=== PATIENT | female | born 1975 | race Caucasian/White ===

== ENCOUNTER 2022-02-10 17:01 | Inpatient (IN) | payer SELFPAY ==
--- NOTE | 2022-02-10 17:22 | XRR_ITS ---
PROCEDURE INFORMATION: Exam: XR Chest Exam date and time: 02/10/2022 6:43 PM Age: 46 years old Clinical indication: Pain; Chest pressure; Additional info: Chest pain TECHNIQUE: Imaging protocol: Radiologic exam of the chest. Views: 1 view. COMPARISON: No relevant prior studies available. FINDINGS: Lungs: Lungs are clear bilaterally. Pleural spaces: No pleural effusion. No pneumothorax. Heart/Mediastinum: The cardiac silhouette is mildly enlarged. Mediastinal contours are unremarkable. Vasculature: Vascular calcifications in the aorta. Bones/joints: Unremarkable for age. XR/XR chest 1V portable [id number] IMPRESSION: 1. No acute cardiopulmonary process. 2. Incidental/nonacute findings are listed in the report.
[2022-02-10 17:23] VITALS: BP 124/81; PULSE 89; RESP 22; O2SAT 99
--- NOTE | 2022-02-10 17:36 | ED_ITS ---
Documented by User: Raúl Caraballo DO 02/17/22 12:52 HPI - Chest Pain General: Chief Complaint: ER Hold Stated Complaint: CHEST PAIN Time Seen by Provider: 02/10/22 17:04 Source: patient Mode of arrival: EMS History of Present Illness: 46-year-old female presents emergency room complaining of arm pain. She had for last several weeks couple times a week, states the pain begins in her forearms radiates up to her shoulders and then into her chest. She notes that she can make the pain better by rubbing or squeezing her arm in the spot that she squeezes seems to get better is also accompanied by neck pain. Will usually resolve spontaneously its been happening every couple of days for a while now its not associated with any diaphoresis or shortness of breath. Patient is a smoker. She has not noticed any increased cough she has a chronic baseline cough that for the most part is unchanged. No vomiting no diarrhea. she came in today because the symptoms were getting worse rather MD complaint: chest discomfort (And arm discomfort) Onset (ago): week(s) Timing of current episode: episodic Prior episodes: Yes Onset: during rest Pain location: substernal Pain radiation: right arm and left arm Severity: mild Quality: tightness, aching and heaviness Relieving factors: other (Massage) Exacerbating factors: nothing Associated symptoms: Deny abdominal pain, diaphoresis, dyspnea, fever(s), leg edema, nausea, palpitations, sense of impending doom, syncope or vomiting Treatment prior to arrival: none Review of Systems Const: Denies: fever(s) or diaphoresis ENMT: Denies: throat pain, ear or mastoid pain, nasal discharge or nasal congestion Card: Reports: chest pain; Denies: palpitations or syncope Resp: Denies: dyspnea GI: Denies: abdominal pain, nausea or vomiting : Denies: flank pain, difficulty voiding, dysuria, urinary frequency or urinary urgency Skin/Breast: Denies: rash or pruritus [facility] ED PFSH: Medical History (Updated 02/13/22 @ 00:00 by ) Non-ST elevation [place] (NSTEMI) Physical Exam Const: GENERAL APPEARANCE: cooperative and comfortable ORIENTATION/CONSCIOUSNESS: Yes awake, Yes oriented to person, Yes oriented to p lace and Yes oriented to time HENMT: COMMON NORMALS: normocephalic, atraumatic and hearing grossly normal bilaterally HEAD & SCALP: normocephalic and atraumatic Resp: COMMON NORMALS: normal respiratory effort, No retractions, No use of accessory muscles and clear to auscultation bilaterally AUSCULTATION: clear to auscultation bilaterally Cardio: COMMON NORMALS: regular rate, regular rhythm and No murmurs present (Cardio) RATE: regular rate RHYTHM: regular rhythm GI: COMMON NORMALS: Soft to palpation and No hepatosplenomegaly present AUSCULTATION: Yes normoactive bowel sounds PALPATION: Yes Soft to palpation, No Tenderness to palpation present (GI), No Guarding due to palpation present (GI) and Yes No hepatosplenomegaly present Extremity: COMMON NORMALS: normal to inspection, capillary refill normal, no clubbing, cyanosis or edema, no calf tenderness and no pedal edema Neuro: SENSORIUM/ORIENTATION: Yes oriented to person, Yes oriented to place and Yes oriented to time Skin: COMMON NORMALS: no rashes or lesions noted GENERAL SKIN EXAM: no rashes or lesions noted Course Vital Signs: Vital signs: Vital Signs Temperature 99.5 F 02/11/22 20:00 Pulse Rate 60 02/12/22 05:07 Respiratory Rate 18 02/12/22 04:00 Blood Pressure 110/60 02/12/22 11:30 Pulse Oximetry 99 02/12/22 04:00 Oxygen Delivery Me thod 02/11/22 17:17 MDM - Chest Pain Medical Decision Making EKG does not show any acute ST elevation. Waiting on second troponin. Care signed out to Dr. Chapman at change of shift. See final notes for diagnosis and disposition. Patient presents for chest pain second troponin is elevated consistent with a non-ST elevation NH. Spoke to the hospitalist will admit at this time. Lab Data 02/10/22 17:39 02/10/22 17:39 Radiology Impressions Chest X-Ray 02/10/22 17:22 IMPRESSION: 1. No acute cardiopulmonary process. 2. Incidental/nonacute findings are listed in the report. Laboratory Results WBC 10.8 10^3/uL (4.0-10.0) H 02/11/22 00:12 RBC 3.84 10^6/uL (4.1-5.3) L 02/11/22 00:12 Hgb 10.1 g/dL (11.5-15.3) L 02/11/22 00:12 Hct 32.6 % (37.0-47.0) L 02/11/22 00:12 MCV 84.9 fl (81-99) 02/11/22 00:12 MCH 26.3 pg (28.0-34.0) L 02/11/22 00:12 MCHC 31.0 g/dL (30.0-36.0) 02/11/22 00:12 RDW 15.9 % (12.1-15.1) H 02/11/22 00:12 Plt Count 359 10^3/cmm (130-400) 02/11/22 00:12 MPV 8.9 fL (7.4-10.4) 02/11/22 00:12 Neut % (Auto) 47.9 % 02/11/22 00:12 Lymph % (Auto) 42.5 % 02/11/22 00:12 [place] % (Auto) 8.1 % 02/11/22 00:12 Eos % (Auto) 0.8 % 02/11/22 00:12 Baso % (Auto) 0.5 % 02/11/22 00:12 Neut # (Auto) 5.19 10^3/uL (1.8-7.7) 02/11/22 00:12 Lymph # (Auto) 4.6 10^3/uL (0.8-4.8) 02/11/22 00:12 [place] # (Auto) 0.9 10^3/uL (0.2-0.9) 02/11/22 00:12 Eos # (Auto) 0.1 10^3/uL (0.0-0.8) 02/11/22 00:12 Baso # (Auto) 0.1 10^3/uL (0.0-0.1) 02/11/22 00:12 Nucleated RBC % (auto) 0 % 02/11/22 00:12 Nucleated RBCs # 0.0 /100WBC 02/11/22 00:12 Sodium 134 mmol/L (136-145) L 02/11/22 00:12 Potassium 3.4 mmol/L (3.5-5.1) L 02/11/22 00:12 Chloride 101 mmol/L (98-107) 02/11/22 00:12 Carbon Dioxide 23 mmol/L (22-29) 02/11/22 00:12 Anion Gap 13.4 (5-19) 02/11/22 00:12 BUN 7 mg/dL (6-20) 02/11/22 00:12 Creatinine 0.7 mg/dL (0.5-0.9) 02/11/22 00:12 GFR Calculation 90.9 mL/min (90-130) 02/11/22 00:12 Glucose 100 mg/dL (65-115) 02/11/22 00:12 Estimat Average Glucose 108 02/10/22 17:39 Estimat Average Glucose Cancelled 02/10/22 17:39 Hemoglobin A1c 5.4 % (4.0-6.0) 02/10/22 17:39 Hemoglobin A1c Cancelled 02/10/22 17:39 Calculated Osmolality 276 mOsm/kg (285-295) L 02/11/22 00:12 Calcium 8.8 mg/dL (8.5-10.5) 02/11/22 00:12 Magnesium 2.0 mg/dL (1.7-2.3) 02/11/22 00:12 Total Bilirubin 0.2 mg/dL (0.15-1.2) 02/11/22 00:12 AST 18 U/L (0-32) 02/11/22 00:12 ALT 10 U/L (0-33) 02/11/22 00:12 Alkaline Phosphatase 59 U/L (35-105) 02/11/22 00:12 Troponin T Gen 5 ng/L 390 ng/L (0-10) H* 02/11/22 09:34 Troponin T Baseline 18 ng/L (0-10) H 02/10/22 17:39 Troponin T 120 Minute 43.49 ng/L (0-10) H 02/10/22 19:11 Delta Troponin T 25.49 ABS# (0-10) H* 02/10/22 19:11 Troponin T Hi Sens 6Hr 161.8 ng/L (0-10) H 02/11/22 00:12 Troponin T Hi Sens 6Hr Delta 143.8 ng/L (0-12) H* 02/11/22 00:12 NT-Pro-B Natriuret Pep 97 pg/mL (0-125) 02/10/22 19:11 Total Protein 6.4 g/dL (6.6-8.7) L 02/11/22 00:12 Albumin 3.6 g/dL (3.5-5.2) 02/11/22 00:12 Globulin 2.8 g/dL (1.3-4.6) 02/11/22 00:12 Triglycerides 118 mg/dL (0-150) 02/10/22 19:11 Cholesterol 201 mg/dL (0-200) H 02/10/22 19:11 LDL Cholesterol, Calc 128 mg/dL (50-129) 02/10/22 19:11 HDL Cholesterol 49 mg/dL (60-100) L 02/10/22 19:11 LDL/HDL Ratio 2.61 RATIO (0.00-3.22) 02/10/22 19:11 Cholesterol/HDL Ratio 4.10 mg/dL (0.0-4.40) 02/10/22 19:11 TSH 1.06 uIU/mL (0.27-4.20) 02/10/22 19:11 Urine Opiates Screen Negative ng/mL (Negative) 02/11/22 08:25 Ur Barbiturates Screen Negative ng/mL (Negative) 02/11/22 08:25 Ur Phencyclidine Scrn Negative ng/mL (Negative) 02/11/22 08:25 Ur Amphetamines Screen Positive ng/mL (Negative) H 02/11/22 08:25 U Benzodiazepines Scrn Negative ng/mL (Negative) 02/11/22 08:25 Urine Cocaine Screen Negative ng/mL (Negative) 02/11/22 08:25 U Marijuana (THC) Screen Negative ng/mL (Negative) 02/11/22 08:25 Discharge Plan Discharge Patient Disposition: Admitted As Inpatient Admit Provider: Jenelle Mir Clinical Impression: Non-ST elevation NH (NSTEMI) Condition: Stable Discharge Diet: Cardiac Discharge Activity: Increase activity as tolerated Coding Level of Care Code ED Heat Treatment Technician for Jessyg Fwd Exam Detailed Documented by User: Suri Chapman MD 02/10/22 20:45 HPI - Chest Pain General: Chief Complaint: ER Hold Stated Complaint: CHEST PAIN Time Seen by Provider: 02/10/22 17:04 [facility] ED PFSH: Medical History (Updated 02/13/22 @ 00:00 by ) Non-ST elevation NH (NSTEMI) Course Vital Signs: Vital signs: Vital Signs Temperature 99.5 F 02/11/22 20:00 Pulse Rate 60 02/12/22 05:07 Respiratory Rate 18 02/12/22 04:00 Blood Pressure 110/60 02/12/22 11:30 Pulse Oximetry 99 02/12/22 04:00 Oxygen Delivery Me thod 02/11/22 17:17 MDM - Chest Pain Medical Decision Making Patient presents for chest pain second troponin is elevated consistent with a non-ST elevation NH. Spoke to the hospitalist will admit at this time. Lab Data 02/10/22 17:39 02/10/22 17:39 Radiology Impressions Chest X-Ray 02/10/22 17:22 IMPRESSION: 1. No acute cardiopulmonary process. 2. Incidental/nonacute findings are listed in the report. Laboratory Results WBC 10.8 10^3/uL (4.0-10.0) H 02/11/22 00:12 RBC 3.84 10^6/uL (4.1-5.3) L 02/11/22 00:12 Hgb 10.1 g/dL (11.5-15.3) L 02/11/22 00:12 Hct 32.6 % (37.0-47.0) L 02/11/22 00:12 MCV 84.9 fl (81-99) 02/11/22 00:12 MCH 26.3 pg (28.0-34.0) L 02/11/22 00:12 MCHC 31.0 g/dL (30.0-36.0) 02/11/22 00:12 RDW 15.9 % (12.1-15.1) H 02/11/22 00:12 Plt Count 359 10^3/cmm (130-400) 02/11/22 00:12 MPV 8.9 fL (7.4-10.4) 02/11/22 00:12 Neut % (Auto) 47.9 % 02/11/22 00:12 Lymph % (Auto) 42.5 % 02/11/22 00:12 [place] % (Auto) 8.1 % 02/11/22 00:12 Eos % (Auto) 0.8 % 02/11/22 00:12 Baso % (Auto) 0.5 % 02/11/22 00:12 Neut # (Auto) 5.19 10^3/uL (1.8-7.7) 02/11/22 00:12 Lymph # (Auto) 4.6 10^3/uL (0.8-4.8) 02/11/22 00:12 [place] # (Auto) 0.9 10^3/uL (0.2-0.9) 02/11/22 00:12 Eos # (Auto) 0.1 10^3/uL (0.0-0.8) 02/11/22 00:12 Baso # (Auto) 0.1 10^3/uL (0.0-0.1) 02/11/22 00:12 Nucleated RBC % (auto) 0 % 02/11/22 00:12 Nucleated RBCs # 0.0 /100WBC 02/11/22 00:12 Sodium 134 mmol/L (136-145) L 02/11/22 00:12 Potassium 3.4 mmol/L (3.5-5.1) L 02/11/22 00:12 Chloride 101 mmol/L (98-107) 02/11/22 00:12 Carbon Dioxide 23 mmol/L (22-29) 02/11/22 00:12 Anion Gap 13.4 (5-19) 02/11/22 00:12 BUN 7 mg/dL (6-20) 02/11/22 00:12 Creatinine 0.7 mg/dL (0.5-0.9) 02/11/22 00:12 GFR Calculation 90.9 mL/min (90-130) 02/11/22 00:12 Glucose 100 mg/dL (65-115) 02/11/22 00:12 Estimat Average Glucose 108 02/10/22 17:39 Estimat Average Glucose Cancelled 02/10/22 17:39 Hemoglobin A1c 5.4 % (4.0-6.0) 02/10/22 17:39 Hemoglobin A1c Cancelled 02/10/22 17:39 Calculated Osmolality 276 mOsm/kg (285-295) L 02/11/22 00:12 Calcium 8.8 mg/dL (8.5-10.5) 02/11/22 00:12 Magnesium 2.0 mg/dL (1.7-2.3) 02/11/22 00:12 Total Bilirubin 0.2 mg/dL (0.15-1.2) 02/11/22 00:12 AST 18 U/L (0-32) 02/11/22 00:12 ALT 10 U/L (0-33) 02/11/22 00:12 Alkaline Phosphatase 59 U/L (35-105) 02/11/22 00:12 Troponin T Gen 5 ng/L 390 ng/L (0-10) H* 02/11/22 09:34 Troponin T Baseline 18 ng/L (0-10) H 02/10/22 17:39 Troponin T 120 Minute 43.49 ng/L (0-10) H 02/10/22 19:11 Delta Troponin T 25.49 ABS# (0-10) H* 02/10/22 19:11 Troponin T Hi Sens 6Hr 161.8 ng/L (0-10) H 02/11/22 00:12 Troponin T Hi Sens 6Hr Delta 143.8 ng/L (0-12) H* 02/11/22 00:12 NT-Pro-B Natriuret Pep 97 pg/mL (0-125) 02/10/22 19:11 Total Protein 6.4 g/dL (6.6-8.7) L 02/11/22 00:12 Albumin 3.6 g/dL (3.5-5.2) 02/11/22 00:12 Globulin 2.8 g/dL (1.3-4.6) 02/11/22 00:12 Triglycerides 118 mg/dL (0-150) 02/10/22 19:11 Cholesterol 201 mg/dL (0-200) H 02/10/22 19:11 LDL Cholesterol, Calc 128 mg/dL (50-129) 02/10/22 19:11 HDL Cholesterol 49 mg/dL (60-100) L 02/10/22 19:11 LDL/HDL Ratio 2.61 RATIO (0.00-3.22) 02/10/22 19:11 Cholesterol/HDL Ratio 4.10 mg/dL (0.0-4.40) 02/10/22 19:11 TSH 1.06 uIU/mL (0.27-4.20) 02/10/22 19:11 Urine Opiates Screen Negative ng/mL (Negative) 02/11/22 08:25 Ur Barbiturates Screen Negative ng/mL (Negative) 02/11/22 08:25 Ur Phencyclidine Scrn Negative ng/mL (Negative) 02/11/22 08:25 Ur Amphetamines Screen Positive ng/mL (Negative) H 02/11/22 08:25 U Benzodiazepines Scrn Negative ng/mL (Negative) 02/11/22 08:25 Urine Cocaine Screen Negative ng/mL (Negative) 02/11/22 08:25 U Marijuana (THC) Screen Negative ng/mL (Negative) 02/11/22 08:25 Discharge Plan Discharge Patient Disposition: Admitted As Inpatient Admit Provider: Jenelle Mir Clinical Impression: Non-ST elevation NH (NSTEMI) Condition: Stable Discharge Diet: Cardiac Discharge Activity: Increase activity as tolerated Coding Level of Care Code ED Heat Treatment Technician for Chg Fwd Exam Detailed
--- NOTE | 2022-02-10 17:51 | ECG_ITS ---
[facility] Test Date: 2022-02-10 Pat Name: Chula Palomino Department: Room: Gender: Female Paper Slitter: : 1975 Requested By: Raúl Ayala Order Number: [id number] Frankie MD: Jina Cain M.D. Measurements Intervals [place] Rate: 80 P: 64 TN: 156 QRS: 74 QRSD: 86 T: 67 QT: 375 QTc: 433 Interpretive Statements SINUS RHYTHM POSSIBLE LEFT ATRIAL ENLARGEMENT [-0.1mV P-WAVE IN V1/V2] No previous ECG available for comparison Electronically Signed On 02-11-2022 14:20:09 BIOLOGY INSTRUCTOR by Jina Cain M.D. [id number]
[2022-02-10 17:52] LABS: Basophils % 0.4 %; Eosinophils % 0.3 %; Hematocrit 34.8 % (37.0-47.0); Hemoglobin 11.2 g/dL (11.5-15.3); Lymphocytes # 3.4 10^3/uL (0.8-4.8); Lymphocytes % 32.2 %; Mean Corpuscular HGB Conc 32.2 g/dL (30.0-36.0); Mean Corpuscular Hemoglobin 26.6 pg (28.0-34.0); Mean Corpuscular Volume 82.7 fl (81-99); Mean Platelet Volume 8.8 fL (7.4-10.4); Monocytes # 0.5 10^3/uL (0.2-0.9); Monocytes % 4.9 %; Neutrophils # 6.49 10^3/uL (1.8-7.7); Neutrophils % 61.9 %; Nucleated Red Blood Cells % 0 %; Platelet Count 403 10^3/cmm (130-400); Red Blood Count 4.21 10^6/uL (4.1-5.3); Red Cell Distribution Width 15.8 % (12.1-15.1); White Blood Count 10.5 10^3/uL (4.0-10.0)
[2022-02-10 18:15] LABS: Troponin(5th) Baseline 18 ng/L (0-10)
[2022-02-10 18:16] LABS: Anion Gap 13.7 (5-19); Blood Urea Nitrogen 5 mg/dL (6-20); Calcium 8.8 mg/dL (8.5-10.5); Carbon Dioxide 24 mmol/L (22-29); Chloride 96 mmol/L (98-107); Glomerular Filtration Rate 108.6 mL/min (90-130); Glucose 106 mg/dL (65-115); Osmolality Calculated 268 mOsm/kg (285-295); Potassium 3.7 mmol/L (3.5-5.1); Sodium 130 mmol/L (136-145)
[2022-02-10 18:41] VITALS: BP 118/80; PULSE 69; RESP 16; O2SAT 98
--- NOTE | 2022-02-10 19:23 | ECG_ITS ---
[facility] Test Date: 2022-02-10 Pat Name: Chula Palomino Department: Room: Gender: Female Yard Coupler: : 1975 Requested By: Raúl Ayala Order Number: [id number] Frankie MD: Jina Cain M.D. Measurements Intervals [place] Rate: 65 P: 67 [place]: 163 QRS: 79 QRSD: 93 T: 76 QT: 392 QTc: 410 Interpretive Statements SINUS RHYTHM Compared to ECG 02/10/2022 17:51:10 No significant changes Electronically Signed On 02-12-2022 0:09:23 ELECTRONIC PAGINATION SYSTEM OPERATOR by Jina Cain M.D. [email or web address] [email or web address]/store/[id number]
[2022-02-10 19:34] VITALS: BP 104/67; PULSE 74; RESP 19; O2SAT 97
[2022-02-10 19:59] LABS: Troponin 5 2HR 43.49 ng/L (0-10)
[2022-02-10 20:04] LABS: Troponin 5 2HR Delta 25.49 ABS# (0-10)
[2022-02-10] MEDS: enoxaparin 80 mg/0.8 mL Syringe 75 MG SUBCUT (20:30)
[2022-02-10 21:34] VITALS: BP 121/67; PULSE 87; RESP 19; O2SAT 97
--- NOTE | 2022-02-10 21:58 | PM.HP ---
Providers/Chief Complaint Primary Care Provider: Radhika Gross APN Chief Complaint: CHEST PAIN History of Present Illness Chula Palomino is a 46 year old female with no significant past medical history and not on any home medications presents to the hospital today for chest pain. She states she has been having pain in her chest and it radiates up to the arm into the jaw for the last few weeks typically lasting less than an hour and going away on its own however today it did not resolve on its own. She also got nauseous and diaphoretic with today's episode. He describes it as a chest heaviness, pressure or squeezing pain that starts in the middle of the chest and radiates up her arms and into the jaw. There are no exacerbating or alleviating factors. She says that she has been on phentermine on and off for the whole year but has not taken it for the last 2 weeks since she could not get an appointment with her doctor to refill it. She is a smoker 1 pack/day since she was a teenager. Denies any alcohol use. Denies other illicit drug use. She does have a baseline cough due to her smoking but has not noticed any worsening or increase sputum production or change in color sputum. Denies nausea, vomiting, diarrhea. Denies any family history of heart disease. Denies a history of any heart disease diagnosed in herself. ED course: 104/67, respiratory 19, pulse 74, saturation 97% on room air. WBC 10.5, sodium 130, chloride 96, hemoglobin 11.2. Chest x-ray did not show any acute cardiopulmonary process. Initial troponin 18, 2 hours 42.49. [place] 25.49. 6-hour troponin pending at this time. Medicine contacted to admit patient for NSTEMI. EKG did not show any acute ischemic changes. Medications/Allergies Allergies Allergy/AdvReac Type Severity Reaction Status Date / Time amoxicillin [From Augmentin] Allergy ALGY-Rash Verified 02/10/22 23:16 clavulanic acid Allergy ALGY-Rash Verified 02/10/22 23:16 [From Augmentin] Vitals/I&O/Wt Last Vital Signs Pulse 87 02/10/22 21:34 Resp 19 H 02/10/22 21:34 BP 121/67 02/10/22 21:34 Pulse Ox 97 02/10/22 21:34 O2 Del Method 02/10/22 21:34 Weight last 48 hrs Weight 75.75 kg Physical Exam Narrative: General: No acute distress HEENT: Normocephalic, atraumatic, breathing normally on room air Cardio: normal s1, s2, RRR Respiratory: clear to ausculation b/l, no wheezes, ronchi or crackles GI: Abdomen soft, nontender, nondistended, bowel sounds + Behavior: Appropriate and cooperative Extremities: No lower extremity edema Data 02/10/22 17:39 02/10/22 17:39 A&P Assessment and plan (1) Non-ST elevation ID (NSTEMI): Plan #Chest pain #NSTEMI #Underlying COPD, has a chronic cough. (has not had PFT's). - Aspirin, plavix 300 x1, then 75 daily, lopressor 12.5 bid, atorvastatin 80 daily, therapeutic lovenox protonix 40 daily - zofran for nausea - Currently pt chest pain free - Check urine drug screen - Family updated at bedside - Check lipid profile, check hemoglobin a1c, check TSH - Consult cardiology. - If chest pain occurs, will place on nitro paste. - Serial EKG's - Monitor vitals - Monitor on telemetry. Full Code DVT PPX: on therapeutic lovenox Attestations Medical Necessity Statement*: > 2 midnight stay for mgmt of NSTEMI Coding Level of Care Code Acute Drivers' Cash Clerk for colleen Brown Diagnoses Non-ST elevation ID (NSTEMI) I21.4
[2022-02-10] MEDS: clopidogrel 300 mg Tablet PO (22:06)
[2022-02-10] MEDS: ondansetron 2 mg/ML SDV 2 mL 4 MG IVP (22:14)
[2022-02-10 22:41] LABS: NT Pro B Type Natriuretic Pept 97 pg/mL (0-125)
[2022-02-10 22:48] LABS: Cholesterol 201 mg/dL (0-200); HDL Cholesterol 49 mg/dL (60-100); LDL Cholesterol Calculated 128 mg/dL (50-129); LDL HDL Ratio 2.61 RATIO (0.00-3.22); Thyroid Stimulating Hormone 1.06 uIU/mL (0.27-4.20); Triglycerides 118 mg/dL (0-150)
[2022-02-10 22:55] LABS: Estmated Average Glucose 108; Hemoglobin A1C 5.4 % (4.0-6.0)
[2022-02-10 23:16] VITALS: BP 136/72; PULSE 91; RESP 20; O2SAT 97
--- NOTE | 2022-02-10 23:23 | ECG_ITS ---
[facility] Test Date: 2022-02-11 Pat Name: Chula Palomino Department: Room: Gender: Female Salesperson Automobiles: : 1975 Requested By: Raúl Ayala Order Number: [id number] Frankie MD: Jina Cain M.D. Measurements Intervals [place] Rate: 77 P: 67 [place]: 161 QRS: 79 QRSD: 88 T: 61 QT: 376 QTc: 426 Interpretive Statements SINUS RHYTHM Compared to ECG 02/10/2022 19:08:45 No significant changes Electronically Signed On 02-12-2022 0:10:29 PLASTER AND STUCCO WORKER by Jina Cain M.D. [email or web address] Financial/store/[id number]
--- NOTE | 2022-02-10 23:55 | PM.CONSULT ---
Providers/Reason For Consult Consulting Physician/Specialty*: JOANNE Cain MD/cardiology Reason for Consult*: Patient with chest pain and elevated troponin T Requesting Physician: Dr. Mir Attending Physician: Dr. Mir Primary Care Provider: Radhika Gross APN History of Present Illness History of Present Illness Chula Palomino is a 46 year old female, is admitted to hospital through the emergency room where she presented with complaints of prolonged episode of chest pain. Patient has no previous history for any cardiac illness or any other significant medical problems. For the last few weeks, she been having episodes of chest pains. According the patient, the pain starts in the forearm, radiates up to the shoulders on both sides and then to the chest. The pain also radiates to the both sides of the neck and also to the jaws. She has associated shortness of breath, nausea and sometimes sweating. No palpitations, dizziness or syncopal episodes. Intensity of the pain is moderate to severe. She has no definite precipitating factors. She had several of these episodes within the last 3 weeks. Usually they subside spontaneously in few minutes. But this evening around 3:00, started having the pain and did not subside. In fact the pain started getting worse. Even though she had similar pains in the past, it never been that severe and also did not radiate to the jaws like today. She has no other associated symptoms or radiation of pain. Denies any history of hypertension, diabetes or dyslipidemia. She smokes a pack daily for the last more than 25 years. No alcohol abuse or any substance abuse. No significant family history for coronary artery disease. Review of Systems Narrative: CONSTITUTIONAL: No fever or chills. EYES: No blurring of vision or other visual disturbances lately. ENT: No hoarseness of voice, auditory disturbances or sore throat. CARDIOVASCULAR: As mentioned above. RESPIRATORY: No significant cough. GASTROINTESTINAL: No hematemesis or melena. GENITOURINARY: No dysuria or hematuria. INTEGUMENTARY: No skin rashes or history of skin cancer. NEURO: No transient ischemic attacks or amaurosis. PSYCHIATRIC: No history of psychosis or major depression. HEMATOLOGIC: No bleeding disorders or significant anemia. ENDOCRINE: No history of polyuria or polydipsia. MUSCULOSKELETAL: No recent joint pain or swelling. ALLERGY/IMMUNOLOGY: As mentioned above. Medications/Allergies Allergies Allergy/AdvReac Type Severity Reaction Status Date / Time amoxicillin [From Augmentin] Allergy ALGY-Rash Verified 02/10/22 23:16 clavulanic acid Allergy ALGY-Rash Verified 02/10/22 23:16 [From Augmentin] Current Medications Generic Name Dose Route Start Last Admin Trade Name Freq PRN Reason Stop Dose Admin Ondansetron HCl 4 mg 02/10/22 21:48 02/10/22 22:14 Ondansetron 2 Mg/Ml Sdv 2 Ml IVP 4 mg Q8H PRN Administration vomiting, or N/V if npo Vitals/I&O/Wt Last Vital Signs Pulse 91 02/10/22 23:16 Resp 20 H 02/10/22 23:16 BP 136/72 02/10/22 23:16 Pulse Ox 97 02/10/22 23:16 O2 Del Method 02/10/22 23:16 Weight last 48 hrs Weight 167 lb Physical Exam Narrative: GENERAL: The patient is alert and oriented times three. Not in any acute distress. HEENT: No significant pallor, icterus or lymphadenopathy.Oral cavity: There are no mucous membrane lesions. NECK: Trachea appears to be central. No masses noted. No JVD or thyromegaly appreciated. RESPIRATORY: Chest is symmetrical. No intercostals muscle retraction or any accessory muscle activation. There is no chest wall tenderness. Breath sounds are heard bilaterally. No rales or rhonchi heard. No evidence of any consolidation. BREASTS: Deferred. HEART: The heart sounds are normal. No S3; + S4. No significant murmurs. No pericardial rub ABDOMEN: No vessel pulsations or distention. No tenderness. No organomegaly appreciated. Bowel sounds are normally heard. : Deferred. RECTAL: Deferred. LYMPHATIC: No lymphadenopathy noted in the neck. EXTREMITIES: No edema or cyanosis. No clubbing. MUSCULOSKELETAL: No acute joint deformities or swelling SKIN: There are no significant rashes or ecchymosis NEUROPSYCHIATRIC: The patient is alert and oriented x3. Appears to be in a good mood. No tremors or rigidity noted. Data 02/10/22 17:39 02/10/22 17:39 Other Labs: Laboratory Last Values WBC 10.5 10^3/uL (4.0-10.0) H 02/10/22 17:39 RBC 4.21 10^6/uL (4.1-5.3) 02/10/22 17:39 Hgb 11.2 g/dL (11.5-15.3) L 02/10/22 17:39 Hct 34.8 % (37.0-47.0) L 02/10/22 17:39 MCV 82.7 fl (81-99) 02/10/22 17:39 MCH 26.6 pg (28.0-34.0) L 02/10/22 17:39 MCHC 32.2 g/dL (30.0-36.0) 02/10/22 17:39 RDW 15.8 % (12.1-15.1) H 02/10/22 17:39 Plt Count 403 10^3/cmm (130-400) H 02/10/22 17:39 MPV 8.8 fL (7.4-10.4) 02/10/22 17:39 Neut % (Auto) 61.9 % 02/10/22 17:39 Lymph % (Auto) 32.2 % 02/10/22 17:39 [place] % (Auto) 4.9 % 02/10/22 17:39 Eos % (Auto) 0.3 % 02/10/22 17:39 Baso % (Auto) 0.4 % 02/10/22 17:39 Neut # (Auto) 6.49 10^3/uL (1.8-7.7) 02/10/22 17:39 Lymph # (Auto) 3.4 10^3/uL (0.8-4.8) 02/10/22 17:39 [place] # (Auto) 0.5 10^3/uL (0.2-0.9) 02/10/22 17:39 Eos # (Auto) 0.0 10^3/uL (0.0-0.8) 02/10/22 17:39 Baso # (Auto) 0.0 10^3/uL (0.0-0.1) 02/10/22 17:39 Nucleated RBC % (auto) 0 % 02/10/22 17: Nucleated RBCs # 0.0 /100WBC 02/10/22 17: Sodium 130 mmol/L (136-145) L 02/10/22 17: Potassium 3.7 mmol/L (3.5-5.1) 02/10/22 17:39 Chloride 96 mmol/L (98-107) L 02/10/22 17:39 Carbon Dioxide 24 mmol/L (22-29) 02/10/22 17:39 Anion Gap 13.7 (5-19) 02/10/22 17:39 BUN 5 mg/dL (6-20) L 02/10/22 17:39 Creatinine 0.6 mg/dL (0.5-0.9) 02/10/22 17:39 GFR Calculation 108.6 mL/min (90-130) 02/10/22 17:39 Glucose 106 mg/dL (65-115) 02/10/22 17:39 Estimat Average Glucose 108 02/10/22 17:39 Estimat Average Glucose Cancelled 02/10/22 17:39 Hemoglobin A1c 5.4 % (4.0-6.0) 02/10/22 17:39 Hemoglobin A1c Cancelled 02/10/22 17:39 Calculated Osmolality 268 mOsm/kg (285-295) L 02/10/22 17:39 Calcium 8.8 mg/dL (8.5-10.5) 02/10/22 17:39 Troponin T Baseline 18 ng/L (0-10) H 02/10/22 17:39 Troponin T 120 Minute 43.49 ng/L (0-10) H 02/10/22 19:11 Delta Troponin T 25.49 ABS# (0-10) H* 02/10/22 19:11 NT-Pro-B Natriuret Pep 97 pg/mL (0-125) 02/10/22 19:11 Triglycerides 118 mg/dL (0-150) 02/10/22 19:11 Cholesterol 201 mg/dL (0-200) H 02/10/22 19:11 LDL Cholesterol, Calc 128 mg/dL (50-129) 02/10/22 19:11 HDL Cholesterol 49 mg/dL (60-100) L 02/10/22 19:11 LDL/HDL Ratio 2.61 RATIO (0.00-3.22) 02/10/22 19:11 Cholesterol/HDL Ratio 4.10 mg/dL (0.0-4.40) 02/10/22 19:11 TSH 1.06 uIU/mL (0.27-4.20) 02/10/22 19:11 EKG 1: My Interpretation: Normal sinus rhythm with normal ST Ts. Normal OR and QRS duration. Normal axis. EKG computer-generated impression: Chest X-Ray 02/10/22 17:22 IMPRESSION: 1. No acute cardiopulmonary process. 2. Incidental/nonacute findings are listed in the report. A&P Assessment and plan (1) Atherosclerotic heart disease of [place] coronary artery with unstable angina pectoris: Patient's clinical features are consistent with unstable angina, complicated with a non-ST elevation myocardial infarction. Hemodynamically she seems to be stable. Currently pain-free. The 2-hour delta for the troponin T was 25. Patient may be treated with a subcu Lovenox, aspirin, Plavix and beta-roselia. She needs to be closely monitored on telemetry. An echocardiogram would be helpful to evaluate LV function and rule out renal pathology. (2) Smoking addiction: Strongly advised to quit smoking (3) Dyslipidemia: Patient may be started on Lipitor 80 mg p.o. now and daily Plan After reviewing the echocardiogram, further recommendations will be made. Patient may benefit from an early cardiac catheterization to further evaluate the coronary status and decide on management. Thank you for the opportunity to eval this patient make these recommendations Consult Attestations Medical Necessity Statement: Patient requires continued hospital stay for close monitoring and further management Coding Level of Care Code Acute Shipping/Receiving Clerk for Lane Brown Diagnoses Atherosclerotic heart disease of [place] coronary artery with unstable angina pectoris I25.110 Smoking addiction F17.200 Dyslipidemia E78.5
[2022-02-11] VITALS (33 sets, daily range): BP systolic 87–124; BP diastolic 52–79; PULSE 59–96; RESP 14–31; TEMP 36.9–37.5; O2SAT 92–99; BMI 26.2
[2022-02-11 00:34] LABS: Basophils # 0.1 10^3/uL (0.0-0.1); Basophils % 0.5 %; Eosinophils # 0.1 10^3/uL (0.0-0.8); Eosinophils % 0.8 %; Hematocrit 32.6 % (37.0-47.0); Hemoglobin 10.1 g/dL (11.5-15.3); Lymphocytes # 4.6 10^3/uL (0.8-4.8); Lymphocytes % 42.5 %; Mean Corpuscular Hemoglobin 26.3 pg (28.0-34.0); Mean Corpuscular Volume 84.9 fl (81-99); Mean Platelet Volume 8.9 fL (7.4-10.4); Monocytes # 0.9 10^3/uL (0.2-0.9); Monocytes % 8.1 %; Neutrophils # 5.19 10^3/uL (1.8-7.7); Neutrophils % 47.9 %; Nucleated Red Blood Cells % 0 %; Platelet Count 359 10^3/cmm (130-400); Red Blood Count 3.84 10^6/uL (4.1-5.3); Red Cell Distribution Width 15.9 % (12.1-15.1); White Blood Count 10.8 10^3/uL (4.0-10.0)
[2022-02-11 00:48] LABS: Alanine Aminotransferase 10 U/L (0-33); Albumin Level 3.6 g/dL (3.5-5.2); Alkaline Phosphatase 59 U/L (35-105); Anion Gap 13.4 (5-19); Aspartate Amino Transferase 18 U/L (0-32); Blood Urea Nitrogen 7 mg/dL (6-20); Calcium 8.8 mg/dL (8.5-10.5); Carbon Dioxide 23 mmol/L (22-29); Chloride 101 mmol/L (98-107); Globulin 2.8 g/dL (1.3-4.6); Glomerular Filtration Rate 90.9 mL/min (90-130); Glucose 100 mg/dL (65-115); Osmolality Calculated 276 mOsm/kg (285-295); Potassium 3.4 mmol/L (3.5-5.1); Sodium 134 mmol/L (136-145); Total Bilirubin 0.2 mg/dL (0.15-1.2); Total Protein 6.4 g/dL (6.6-8.7)
[2022-02-11 00:51] LABS: Troponin 5 6HR 161.8 ng/L (0-10); Troponin 5 6HR Delta 143.8 ng/L (0-12)
--- NOTE | 2022-02-11 06:00 | USCV_ITS ---
Chula Palomino Age: 46 Gender: F : 1975 Exam Date: 02/11/2022 06:09 Ordering Phys: Jenelle Mir MD Technologist: Gregory Rodriguez Exam Location[place] [facility] [place] Indication: chest pain BP: 119 / 73 HR: 68 Rhythm: Sinus Technical Quality: Adequate MEASUREMENTS (Male / Female) Normal Values 2D ECHO LV Diastolic Diameter PLAX 3.3 cm 4.2 - 5.9 / 3.9 - 5.3 cm LV Systolic Diameter PLAX 2.4 cm IVS Diastolic Thickness 0.9 cm 0.6 - 1.0 / 0.6 - 0.9 cm IVS Systolic Thickness 1.3 cm LVPW Diastolic Thickness 0.9 cm 0.6 - 1.0 / 0.6 - 0.9 cm LVPW Systolic Thickness 1.5 cm LVOT Diameter 2.0 cm LV Ejection Fraction 2D Teich 53.6 % LV Ejection Fraction MOD 2C 69.1 % LV Ejection Fraction 2C AL 70.1 % LA Diameter 3.3 cm Aorta at Sinotubular Diameter 2.7 cm IVC Diameter 1.6 cm M-MODE Aortic Annulus Diameter 3.2 cm LA Ao Ratio MM 1.1 MV E Point Septal Separation 0.7 cm DOPPLER AV Peak Velocity 137.0 cm/s LVOT Peak Velocity 107.0 cm/s AV Area Cont Eq vti 3.1 cm squared AV Area Cont Eq pk 2.6 cm squared MV Area PHT 5.0 cm squared Mitral E to A Ratio 1.4 MV E' Velocity 66.0 cm/s Mitral E to MV E' Ratio 8.2 Mitral E to LV E' Lateral Ratio 7.8 Mitral E to LV E' Septal Ratio 8.7 TR Peak Velocity 128.0 cm/s TR Peak Gradient 6.6 mmHg TV Peak E Velocity 89.0 cm/s Right Atrial Pressure 3.0 mmHg Pulmonary Artery Systolic Pressu 9.6 mmHg RV Acceleration Time 0.1 s FINDINGS Left Ventricle Normal left ventricular size, systolic function and wall thickness, with no regional wall motion abnormalities. Left ventricular ejection fraction is estimated at 68 %. Normal diastolic function. Right Ventricle Normal right ventricular size and systolic function. Right ventricular systolic pressure 9.6 mmHg. Right Atrium Normal right atrial size. Left Atrium Normal left atrial size. Mitral Valve Structurally normal mitral valve. No mitral valve stenosis. Trace mitral valve regurgitation. Aortic Valve Structurally normal trileaflet aortic valve. No aortic valve stenosis. No aortic valve regurgitation. Tricuspid Valve Structurally normal tricuspid valve. No tricuspid valve stenosis. Trace tricuspid valve regurgitation. Pulmonic Valve Pulmonic valve not well visualized. No pulmonary valve stenosis. No pulmonary valve regurgitation. Pericardium No pericardial effusion. Aorta Normal size aortic root and proximal ascending aorta. IVC Normal IVC dimension with >50% respiratory change of the inferior vena cava. CONCLUSIONS 1. Normal left ventricular size, systolic function and wall thickness, with no regional wall motion abnormalities. Left ventricular ejection fraction is estimated at 68 %. Normal diastolic function. 2. Normal right ventricular size and systolic function. 3. No significant valvular abnormality. 4. No prior similar studies to compare. Eloina Driver MD (Electronically Signed) Final Date: 11 February 2022 12:21 S
[2022-02-11] MEDS: atorvastatin 40 mg Tablet 80 MG PO (08:11)
[2022-02-11] MEDS: aspirin 81 mg EC Tablet PO (08:11)
[2022-02-11] MEDS: potassium chloride ER 20 mEq Tablet 40 MEQ PO (08:11)
[2022-02-11] MEDS: pantoprazole DR 40 mg Tablet PO (08:12)
[2022-02-11] MEDS: clopidogrel 75 mg Tablet PO (08:12)
[2022-02-11] MEDS: enoxaparin 80 mg/0.8 mL Syringe 75 MG SUBCUT (08:14)
[2022-02-11 08:39] LABS: Amphetamines Screen Urine Positive (Negative); Barbiturates Screen Urine Negative (Negative); Benzodiazepines Screen Urine Negative (Negative); Cocaine Screen Urine Negative (Negative); Opiate Screen Urine Negative (Negative); PCP Screen Urine Negative (Negative); THC Screen Urine Negative (Negative)
--- NOTE | 2022-02-11 10:10 | PM.PN ---
Subjective Subjective: Patient denies any chest discomfort overnight. History and physical reviewed in detail. No shortness of breath. She is awaiting angiogram. Medications: Reviewed: Yes Vitals/I&O/Wt Last Vital Signs Pulse 77 02/11/22 08:29 Resp 18 02/11/22 08:29 BP 112/74 02/11/22 08:29 Pulse Ox 97 02/11/22 08:29 O2 Del Method 02/11/22 08:29 Weight last 48 hrs Weight 75.75 kg Physical Exam Narrative: General exam no distress Neck is supple no lymphadenopathy or thyromegaly Cardiovascular regular rate and rhythm without murmur Lungs clear no wheezing or crackles Abdomen is soft nontender positive bowel sounds Extremities no cyanosis clubbing or edema. Skin no rash Data 02/11/22 00:12 02/11/22 00:12 A&P Assessment and plan (1) Non-ST elevation [place] (NSTEMI): Patient with significant troponin elevation consistent with non-ST elevation myocardial infarction Full anticoagulation with Lovenox Aspirin daily Loaded with Plavix Started on beta-roselia 12.5 mg of metoprolol twice daily Cardiology consult, anticipate angiogram this afternoon Echocardiogram pending TSH was checked and normal Continue statin (2) Smoking addiction: Encourage cessation Plan Note urine drug screen positive for amphetamines Mild hypokalemia, supplemented Attestations Medical Necessity Statement*: Needs continued hospitalization for evaluation of non-ST elevation myocardial infarction. Coding Level of Care Code Acute Radiology Equipment Servicer for Lane Brown Diagnoses Non-ST elevation [place] (NSTEMI) I21.4 Smoking addiction F17.200
[2022-02-11 10:17] LABS: Troponin T (5th) Once 390 ng/L (0-10)
--- NOTE | 2022-02-11 10:58 | XACV_ITS ---
Exam Room: 2 Ht: 170 cm Wt: 76 kg BSA: 1.91 m2 Gender: Female : 1975 Any Known Allergies: Other Exam Priority: Routine Procedure(s): Procedure Description: Diagnostic procedure Procedure Description: PCI procedure Procedure Description: Left Heart Catheterization Procedure Description: Left ventriculography Procedure Description: Drug Eluting Coronary Stent Procedure Description: Miscellaneous Procedure Description: ACT Procedure Description: Coronary Angiography Ant [place]; Diagnostic Cath Status: Elective Diagnostic Findings * The left main is a medium caliber short vessel with no significant stenotic lesions. * The left artery descending artery is a medium caliber vessel which appears to wrap around the LV apex. No significant stenotic lesions were noted in this vessel. * The left circumflex artery is a medium caliber codominant vessel which gives of the first obtuse marginal branch which is a relatively small caliber vessel. There is around 50% eccentric narrowing proximally. Just before the terminal bifurcation of the circumflex proper, there was an eccentric tubular lesion with a filling defect. One of the terminal branches patient with a PLV branch. No significant stenotic lesions were noted. * The right coronary artery is a small to medium caliber codominant vessel. The PLV branch appears to be rudimentary. No significant stenotic lesions were noted in this vessel. * The intermediate artery is a small caliber vessel with no significant stenotic lesions. PCI Status: Urgent PCI Indication: NSTE - ACS Interventional Findings * Procedure detail: We engaged left main artery with XB 3.0 guide catheter. IV heparin was administered to maintain ACT above 250 s. 0.014 run-through guidewire was used to cross left circumflex artery stenosis with overlaying thrombus. We proceeded with direct stenting with 3.0 x 18 mm resolute Haynes drug-eluting stent. At this time final angiogram was performed that showed excellent stent expansion, no residual stenosis and GENI-3 flow. 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 * Mid Circumflex: 70% stenosis treated with a MDT R CARY 3.0X18 SLIME. Conclusions 1. 46-year-old white female with no significant past medical history, except for the history of smoking abuse, presents with unstable anginal symptoms and features of a non-ST elevation myocardial infarction. Unremarkable EKG and echocardiogram. She underwent left heart catheterization with left and right coronary angiogram and LV angiogram today. The findings are as follows. 2. A high-grade lesion with a filling defect in the mid circumflex artery. Codominant right coronary artery. Around 50% lesion in the relatively small first obtuse marginal branch. No other significant stenotic lesions. Normal LV ejection fraction 55%. LVEDP 24 mmHg. 3. For further management of her condition, PCI of the circumflex lesion was thought to be appropriate. I reviewed and discussed the cardiac catheterization data with the Dr. Gallagher. Dr. Lewis concurred with this plan and took over further management of this patient at this point. Further details of the procedure, please refer to the report by Dr. Lewis. 4. S/p successful revascularization of mid Left circumflex artery stenosis with SLIME x1. 5. Mid Circumflex was treated with a Drug Eluting Stent. Recommendations * Aspirin and Plavix for atleast 1 year. * High intensity statin therapy. * Outpatient cardiology follow up in 4 weeks. Interventional RX Recommendation: PCI w/o planned CABG Diagnostic RX Recommendation: PCI w/o planned CABG Anticoagulation: Heparin Ventriculography Ejection Fraction: 55.0 % LV EDP: 24 mmHg Left Ventriculography Findings: * The LV gram was performed in the TELLO projection. LV cavity appeared to be normal size. LV ejection fraction was around 55%. There is no filling defects noted. No significant mitral valve prolapse or mitral regurgitation. Pressures Phase:Rest AO : 93 / 67 ( 80 ) @ 4:51:00 PM 91 / 61 ( 78 ) @ 4:56:00 PM 106 / 58 ( 79 ) @ 5:06:00 PM 106 / 58 ( 79 ) @ 5:06:00 PM LV : 114 / 3 / 24 @ 5:05:00 PM 118 / 0 / 23 @ 5:06:00 PM 118 / 0 / 23 @ 5:06:00 PM Valves Phase:DefaultPhase AV : 13.0 @ 5:28:18 PM AV Mean Gradient: 11.0 @ 5:28:18 PM Clinical Evaluation EBL: 5mL-10mL Procedural Details Procedure Consent Obtained. Pre-Procedure Time Out. Identified patient by full name and date of as verbalized by the patient/guarantor. Does the consent match the physician's order: Yes. Accurate & Complete Informed Consent: Yes. Inpatient/Outpatient History & Physical on Chart: Yes. If H&P is completed, is and addenduem needed: No. Visualize and Verify Site with Patient/Guarantor: N/A. Relevant Radiology Images available: Yes. The risks, benefits, and alternatives of sedation and/or procedure were discussed by physician. The patient agrees to continue. Procedure started. [facility] Clinical Fraility Score: 3: Managing Well. Boiler Plant Operator Indications: ACS > 24 hours/NSTEMI. Chest Pain Symptom Assessment: Typical Angina Symptoms. Cardiovascular Instability: No. Correct patient, site and procedure confirmed by cath team. PERRLA. Strong, equal hand fingernail sculpturer bilaterally. Lungs clear x 5 lobes. IV Site on Arrival: 20 gauge in the right anticubital. IV Site on Arrival: 20 gauge in the left anticubital. IV Fluids: 0.9% NaCl at KVO. 0 mL infused prior to cardiac catheterization technician. Pre Procedural Pulses: bilateral dorsalis pedis was 3+. Pre Procedural Pulses: bilateral posterior tibial was 3+. Pre Procedural Pulses: bilateral radial was 3+. Oxygen started at 2liters/min via nasal canula. right groin was prepped with chloroprep then draped in the usual sterile fashion. right radial was prepped with chloroprep then draped in the usual sterile fashion. Physician notified. Baseline sample Acquired. HR: 71 BPM. Patient's family unavailable. Equipment: 6F - Radial. Cardiac Cath Pack. [employer] Manifold Kit Model BT 2000. Heparinized Saline (2 units/mL), 1000 mL bag. Patient's family unavailable. spouse went home. Physician scrubbed in. Immediate Pre-Procedure Time Out. Correct Patient: Yes; Correct Procedure: Yes; Correct Site: Yes; Correct Patient Position: Yes; Correct Supplies: Yes; Dried Flammable Prep: Yes; Blood Products Available: N/A;. Lidocaine 1% infiltrated to the right radial. Arterial access obtained. A 5 guamanian [place] catheter in over the exchange J wire. Multiple views taken of left coronary artery. Current Diagnosis : NSTEMI. Catheter redirected to the RCA, unable to cannulate, out over the exchange J wire. A 5 guamanian JR4 catheter in over the exchange J wire. Cine of the RCA performed. Catheter removed over the exchange J wire. A 5 guamanian AR1 catheter in over the exchange J wire. Multiple views taken of right coronary artery. Catheter removed over the exchange J wire. A 6 guamanian Angled Pig catheter in over the exchange J wire. EDP Sample taken: LV 114/3,24; HR: 79 BPM; SpO2: 100%. LV gram performed in TELLO @ 10 mL/second for a total of 30 mL. EDP Sample taken: LV 118/0,23; HR: 80 BPM; SpO2: 100%. Pullback taken: LV 118/-1,23; AO 106/58(79); Mean: 11mmHg, Peak to Peak: 13mmHg, SEP: 19sec/min; HR: 79 BPM; SpO2: 100%. Catheter removed over the exchange J wire. Dr. Cain scrubbed out. Dr. Gallagher here to view cineography. 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 Dr. Gallagher scrubbed in to perform intervention. PCI Indication: NSTE. 6 guamanian XB 3 guide catheter was inserted over the exchange J wire. Runthrough guidewire was advanced through the guide catheter to lesion in the mid Circ. Inflation Number : 1 Amelia [place] CARY 3.0X18 SLIME -Lot Number# [id number] was prepped and advanced across the Mid CX. The stent was deployed at 12 GINGER for 0:17 seconds. Exp. . Stent balloon out over wire. Results checked. Wire out. ACT drawn. Results 229 seconds. Therapeutic limits - pre-heparin administration 90-150 seconds and monitoring heparin during a vascular procedure >250 seconds. Guide catheter out over the exchange J wire. Dr. Gallagher scrubbed out. A TR Band was successful obtaining hemostatsis at the Right Radial artery insertion site. TR band placed. Hemostasis obtained. Post Procedure: Pulses reassessed and unchanged. PERRLA. Strong, equal hand fingernail sculpturer bilaterally. No VTE prophylaxis required. Medication's Wasted: Lidocaine 1% = 2 mL. Medication's Wasted: Nitro = 49.9 mg. Medication's Wasted: Heparin = 1000 units. Total IV fluids: 296 mL. Post-op diagnosis: PCI of the Mid CX. Complications: none. Estimated blood loss: 5mL-10mL. Responsiveness - Normal response to verbal stimuli; alert and oriented, PERRLA. Airway - Unaffected, no intervention required; spontaneous ventilation. Circulation: W/N/L, pulses unchanged. Nausea/Vomiting: No. Procedure completed. Patient transferred by wheelchair to 1st floor. Vital chart was stopped. Access Site Site: Right Radial artery Sheath Size: 6 Fr Hemostasis Method: TR Band Hemostasis Success: Successful Procedure Medications Start: 4:37 PM Stop: 4:37 PM Medication: Fentanyl Amount: 50 mcg Route: I.V. Start: 4:45 PM Stop: 4:45 PM Medication: Versed Amount: 1 mg Route: I.V. Start: 4:47 PM Stop: 4:47 PM Medication: Versed Amount: 1 mg Route: I.V. Start: 4:48 PM Stop: 4:48 PM Medication: Verapamil Amount: 5 mg Route: I.A. Start: 4:48 PM Stop: 4:48 PM Medication: Nitrogylcerin Amount: 100 mcg Route: I.A. Start: 4:49 PM Stop: 4:49 PM Medication: 0.9% Saline Amount: 250 ml Route: I.V. bolus Start: 4:50 PM Stop: 4:50 PM Medication: Fentanyl Amount: 25 mcg Route: I.V. Start: 4:53 PM Stop: 4:53 PM Medication: Heparin Amount: 3000 units Route: I.V. Start: 5:06 PM Stop: 5:06 PM Medication: Fentanyl Amount: 25 mcg Route: I.V. Start: 5:15 PM Stop: 5:15 PM Medication: Versed Amount: 1 mg Route: I.V. Start: 5:15 PM Stop: 5:15 PM Medication: Heparin Amount: 4000 units Route: I.V. Start: 5:23 PM Stop: 5:23 PM Medication: Versed Amount: 1 mg Route: I.V. Start: 5:25 PM Stop: 5:25 PM Medication: Heparin Amount: 2000 units Route: I.V. I, the attending physician, have reviewed and verified all procedure medications. Yes, all medications given per verbal order History/Risk Factors Hypertension: No Dyslipidemia: Yes Peripheral Arterial Disease (PAD): No Myocardial Infarction ([place]): No Obesity: No Renal Disease: No Tobacco Use: Current/Recent(w/in 1 year) Prior Interventions PCI: No CABG: No Valve Surgery: No Report Signatures Interventional Workflow Finalized by Chris Gallagher MD on 02/20/2022 11:20 AM Diagnostic Workflow Finalized by Dr Jina Cain MD [facility] on 02/12/2022 08:46 AM
--- NOTE | 2022-02-11 16:17 | PM.PN ---
Subjective Subjective: This patient has not had a recurrence of chest pain since last night. Her troponin pain is trending upwards. No shortness of breath. No palpitations. No significant arrhythmias on the monitor. Medications: Medication Review Details: Current Medications Acetaminophen (Acetaminophen 325 Mg Tablet) 650 mg PO Q6H PRN PRN Reason: Mild/Mod Pain Or Temp >/= 101 Aspirin (Aspirin 81 Mg Ec Tablet) 81 mg PO DAILY [facility] Last Admin: 02/11/22 08:11 Dose: 81 mg Atorvastatin Calcium (Atorvastatin 40 Mg Tablet) 80 mg PO DAILY [facility] Last Admin: 02/11/22 08:11 Dose: 80 mg Clopidogrel Bisulfate (Clopidogrel 75 Mg Tablet) 75 mg PO DAILY [facility] Last Admin: 02/11/22 08:12 Dose: 75 mg Enoxaparin Sodium (Enoxaparin 80 Mg/0.8 Ml Syringe) 75 mg SUBCUT Q12H [facility] Last Admin: 02/11/22 08:14 Dose: 75 mg Metoprolol Tartrate (Metoprolol Tartrate 25 Mg Tablet) 12.5 mg PO BID@0900,2100 [facility] Last Admin: 02/11/22 08:39 Dose: Not Given Ondansetron HCl (Ondansetron 2 Mg/Ml Sdv 2 Ml) 4 mg IVP Q8H PRN PRN Reason: vomiting, or N/V if npo Last Admin: 02/10/22 22:14 Dose: 4 mg Pantoprazole Sodium (Pantoprazole Dr 40 Mg Tablet) 40 mg PO DAILY [facility] Last Admin: 02/11/22 08:12 Dose: 40 mg Vitals/I&O/Wt Last Vital Signs Temp 98.5 F 02/11/22 15:31 Pulse 78 02/11/22 15:31 Resp 18 02/11/22 15:31 BP 116/66 02/11/22 15:31 Pulse Ox 96 02/11/22 15:31 O2 Del Method 02/11/22 13:27 Weight last 48 hrs Weight 167 lb Physical Exam Narrative: GENERAL: The patient is alert and oriented times three. Not in any acute distress. HEENT: No significant pallor, icterus or lymphadenopathy.Oral cavity: There are no mucous membrane lesions. NECK: Trachea appears to be central. No masses noted. No JVD or thyromegaly appreciated. RESPIRATORY: Chest is symmetrical. No intercostals muscle retraction or any accessory muscle activation. There is no chest wall tenderness. Breath sounds are heard bilaterally. No rales or rhonchi heard. No evidence of any consolidation. BREASTS: Deferred. HEART: The heart sounds are normal. No S3 or S4. No significant murmurs. No pericardial rub ABDOMEN: No vessel pulsations or distention. No tenderness. No organomegaly appreciated. Bowel sounds are normally heard. : Deferred. RECTAL: Deferred. LYMPHATIC: No lymphadenopathy noted in the neck. EXTREMITIES: No edema or cyanosis. No clubbing. MUSCULOSKELETAL: No acute joint deformities or swelling SKIN: There are no significant rashes or ecchymosis NEUROPSYCHIATRIC: The patient is alert and oriented x3. Appears to be in a good mood. No tremors or rigidity noted. Data 02/11/22 00:12 02/11/22 00:12 Other Labs: Laboratory Last Values WBC 10.8 10^3/uL (4.0-10.0) H 02/11/22 00:12 RBC 3.84 10^6/uL (4.1-5.3) L 02/11/22 00:12 Hgb 10.1 g/dL (11.5-15.3) L 02/11/22 00:12 Hct 32.6 % (37.0-47.0) L 02/11/22 00:12 MCV 84.9 fl (81-99) 02/11/22 00:12 MCH 26.3 pg (28.0-34.0) L 02/11/22 00:12 MCHC 31.0 g/dL (30.0-36.0) 02/11/22 00:12 RDW 15.9 % (12.1-15.1) H 02/11/22 00:12 Plt Count 359 10^3/cmm (130-400) 02/11/22 00:12 MPV 8.9 fL (7.4-10.4) 02/11/22 00:12 Neut % (Auto) 47.9 % 02/11/22 00:12 Lymph % (Auto) 42.5 % 02/11/22 00:12 [place] % (Auto) 8.1 % 02/11/22 00:12 Eos % (Auto) 0.8 % 02/11/22 00:12 Baso % (Auto) 0.5 % 02/11/22 00:12 Neut # (Auto) 5.19 10^3/uL (1.8-7.7) 02/11/22 00:12 Lymph # (Auto) 4.6 10^3/uL (0.8-4.8) 02/11/22 00:12 [place] # (Auto) 0.9 10^3/uL (0.2-0.9) 02/11/22 00:12 Eos # (Auto) 0.1 10^3/uL (0.0-0.8) 02/11/22 00:12 Baso # (Auto) 0.1 10^3/uL (0.0-0.1) 02/11/22 00:12 Nucleated RBC % (auto) 0 % 02/11/22 00:12 Nucleated RBCs # 0.0 /100WBC 02/11/22 00:12 Sodium 134 mmol/L (136-145) L 02/11/22 00:12 Potassium 3.4 mmol/L (3.5-5.1) L 02/11/22 00:12 Chloride 101 mmol/L (98-107) 02/11/22 00:12 Carbon Dioxide 23 mmol/L (22-29) 02/11/22 00:12 Anion Gap 13.4 (5-19) 02/11/22 00:12 BUN 7 mg/dL (6-20) 02/11/22 00:12 Creatinine 0.7 mg/dL (0.5-0.9) 02/11/22 00:12 GFR Calculation 90.9 mL/min (90-130) 02/11/22 00:12 Glucose 100 mg/dL (65-115) 02/11/22 00:12 Estimat Average Glucose 108 02/10/22 17:39 Estimat Average Glucose Cancelled 02/10/22 17:39 Hemoglobin A1c 5.4 % (4.0-6.0) 02/10/22 17:39 Hemoglobin A1c Cancelled 02/10/22 17:39 Calculated Osmolality 276 mOsm/kg (285-295) L 02/11/22 00:12 Calcium 8.8 mg/dL (8.5-10.5) 02/11/22 00:12 Magnesium 2.0 mg/dL (1.7-2.3) 02/11/22 00:12 Total Bilirubin 0.2 mg/dL (0.15-1.2) 02/11/22 00:12 AST 18 U/L (0-32) 02/11/22 00:12 ALT 10 U/L (0-33) 02/11/22 00:12 Alkaline Phosphatase 59 U/L (35-105) 02/11/22 00:12 Troponin T Gen 5 ng/L 390 ng/L (0-10) H* 02/11/22 09:34 Troponin T Baseline 18 ng/L (0-10) H 02/10/22 17:39 Troponin T 120 Minute 43.49 ng/L (0-10) H 02/10/22 19:11 Delta Troponin T 25.49 ABS# (0-10) H* 02/10/22 19:11 Troponin T Hi Sens 6Hr 161.8 ng/L (0-10) H 02/11/22 00:12 Troponin T Hi Sens 6Hr Delta 143.8 ng/L (0-12) H* 02/11/22 00:12 NT-Pro-B Natriuret Pep 97 pg/mL (0-125) 02/10/22 19:11 Total Protein 6.4 g/dL (6.6-8.7) L 02/11/22 00:12 Albumin 3.6 g/dL (3.5-5.2) 02/11/22 00:12 Globulin 2.8 g/dL (1.3-4.6) 02/11/22 00:12 Triglycerides 118 mg/dL (0-150) 02/10/22 19:11 Cholesterol 201 mg/dL (0-200) H 02/10/22 19:11 LDL Cholesterol, Calc 128 mg/dL (50-129) 02/10/22 19:11 HDL Cholesterol 49 mg/dL (60-100) L 02/10/22 19:11 LDL/HDL Ratio 2.61 RATIO (0.00-3.22) 02/10/22 19:11 Cholesterol/HDL Ratio 4.10 mg/dL (0.0-4.40) 02/10/22 19:11 TSH 1.06 uIU/mL (0.27-4.20) 02/10/22 19:11 Urine Opiates Screen Negative ng/mL (Negative) 02/11/22 08:25 Ur Barbiturates Screen Negative ng/mL (Negative) 02/11/22 08:25 Ur Phencyclidine Scrn Negative ng/mL (Negative) 02/11/22 08:25 Ur Amphetamines Screen Positive ng/mL (Negative) H 02/11/22 08:25 U Benzodiazepines Scrn Negative ng/mL (Negative) 02/11/22 08:25 Urine Cocaine Screen Negative ng/mL (Negative) 02/11/22 08:25 U Marijuana (THC) Screen Negative ng/mL (Negative) 02/11/22 08:25 Echo: My impression: 1. Normal left ventricular size, systolic function and wall ?thickness, with no regional wall motion abnormalities. Left ?ventricular ejection fraction is estimated at 68 %. Normal ?diastolic function. ?2. Normal right ventricular size and systolic function. ?3. No significant valvular abnormality. ?4. No prior similar studies to compare. A&P Assessment and plan (1) Atherosclerotic heart disease of [place] coronary artery with unstable angina pectoris: Patient's clinical features are consistent with unstable angina, complicated with a non-ST elevation myocardial infarction. Hemodynamically she seems to be stable. Currently pain-free. Patient seems to be tolerating medication so far well. The echocardiogram was unremarkable. For further evaluation of her coronary status, she requires a cardiac catheterization. The risk of bleeding, hematoma, vascular injury, myocardial infarction, myocardial perforation, malignant cardiac arrhythmias ,CVA, renal failure and other concomitant complications were explained in detail. Patient understood this well and consented to proceed. We may go ahead and scheduled for cardiac radiation as early as possible. We will continue on the current medications for the time being. (2) Smoking addiction: Strongly advised to quit smoking (3) Dyslipidemia: Patient may be started on Lipitor 80 mg p.o. now and daily. 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
--- NOTE | 2022-02-11 16:21 | W.PM.OPSUD ---
Surgery/Procedure H&P Update DATE OF PROCEDURE: February 11, 2022 DATE H&P PERFORMED: 02/10/22 H&P UPDATE INFORMATION: I have reviewed H&P completed within last 30 days, I have examined patient prior to procedure and No changes to prior documentation PREOP DIAGNOSIS: NSTEMI PRIMARY INDICATION FOR PROCEDURE: Unstable angina/non-ST elevation myocardial infarction/troponin T, trending upward PLANNED PROCEDURE: Left heart catheterization with coronary angiogram and possible PCI PATIENT REASSESSED PRIOR TO SEDATION, WITH NO CHANGE NOTED: Yes PHYSICAL EXAM: alert, oriented x 3, clear to auscultation bilaterally and regular rate & rhythm AIRWAY EVAL/ANESTHESIA PLAN: normal airway, see other exam findings, ASA III, Monitored Anesthesia, Local Anesthesia, Risks, benefits & alternatives of sedation and/or procedure discussed and Patient agrees to continue as planned
--- NOTE | 2022-02-11 17:27 | PC.NURSE ---
This nurse agrees with all documentation and medication demonstrations by Student Nurse
[2022-02-11] MEDS: sodium chloride 0.9% 1,000 ML 100 ML IV (18:02)
[2022-02-11] MEDS: metoprolol tartrate 25 mg Tablet 12.5 MG PO (20:16)
--- NOTE | 2022-02-11 21:56 | PC.NURSE ---
Initiated TR band removal at 1830 removing 2ml of air every 20-30min. Band off at this time. No s/s of bleeding or hematoma formation observed. Cleaned and covered site with 2x2 and bio-occlusive dressing. Wrapped with coban as reminder for patient not to over use her wrist. Right extremity remains warm, pink and has palpable pulses. Instructed patient on site care and restrictions. Patient verbalized understanding. Will continue to monitor.
[2022-02-12] VITALS (7 sets, daily range): BP systolic 89–112; BP diastolic 52–67; PULSE 60–97; RESP 17–21; O2SAT 94–99
--- NOTE | 2022-02-12 05:07 | PC.NURSE ---
Dressing to right wrist remains c,d,i with no s/s of bleeding or hematoma formation observed. Patient denies pain to site. Pulses palpable. RUE pink and warm to touch. Will continue to monitor.
[2022-02-12 05:37] LABS: Basophils % 0.4 %; Eosinophils % 0.4 %; Hematocrit 33.1 % (37.0-47.0); Hemoglobin 10.1 g/dL (11.5-15.3); Lymphocytes # 3.1 10^3/uL (0.8-4.8); Lymphocytes % 33.7 %; Mean Corpuscular HGB Conc 30.5 g/dL (30.0-36.0); Mean Corpuscular Volume 85.3 fl (81-99); Mean Platelet Volume 9.3 fL (7.4-10.4); Monocytes # 0.8 10^3/uL (0.2-0.9); Monocytes % 8.3 %; Neutrophils # 5.21 10^3/uL (1.8-7.7); Nucleated Red Blood Cells % 0 %; Platelet Count 358 10^3/cmm (130-400); Red Blood Count 3.88 10^6/uL (4.1-5.3); White Blood Count 9.2 10^3/uL (4.0-10.0)
[2022-02-12 07:18] LABS: Alanine Aminotransferase 10 U/L (0-33); Albumin Level 3.5 g/dL (3.5-5.2); Alkaline Phosphatase 55 U/L (35-105); Anion Gap 11.6 (5-19); Aspartate Amino Transferase 21 U/L (0-32); Blood Urea Nitrogen 10 mg/dL (6-20); Calcium 8.6 mg/dL (8.5-10.5); Carbon Dioxide 22 mmol/L (22-29); Chloride 106 mmol/L (98-107); Globulin 2.9 g/dL (1.3-4.6); Glomerular Filtration Rate 90.9 mL/min (90-130); Glucose 95 mg/dL (65-115); Osmolality Calculated 279 mOsm/kg (285-295); Potassium 4.6 mmol/L (3.5-5.1); Sodium 135 mmol/L (136-145); Total Bilirubin 0.2 mg/dL (0.15-1.2); Total Protein 6.4 g/dL (6.6-8.7)
--- NOTE | 2022-02-12 07:41 | P.DS_ITS ---
Discharge Providers Date of Admission: 02/11/22 14:20 Date of Discharge: February 12, 2022 Attending Provider at Admission: Jenelle Mir MD Attending Provider at Discharge: Hudson Walters MD Primary Care Provider: Radhika Gross APN Diagnoses at Discharge Discharge Diagnosis (1) Atherosclerotic heart disease of [place] coronary artery with unstable angina pectoris: Status: Acute (2) Smoking addiction: Status: Acute (3) Dyslipidemia: Status: Acute Reason for Visit Reason for Visit: CHEST PAIN Hospital Course Hospital Course Patient presents to the hospital with complaints of chest discomfort. Significant elevation in troponin was noted consistent with non-ST elevation myocardial infarction. Cardiology was consulted. They recommended angiogram which was performed February 11. Circumflex stent was placed. Please see report for further details. Patient tolerated the procedure well without complications. She was able to be discharged on February 12. I discussed the risks and benefits of the medicines she will be discharged on, particularly the importance and risks and benefits of Plavix. Also instructed her not to resume any phentermine which she was on for weight loss. She will follow-up with her primary care provider and have a CBC at that time. She had mild anemia upon presentation. Depending upon previous labs, healthcare maintenance, etc. she may need further work-up. Physical Exam Narrative: General exam no distress Neck is supple no lymphadenopathy thyromegaly Cardiovascular regular rate and rhythm, no murmur Lungs clear no wheezing or crackles Abdomen is soft with positive bowel sounds Extremities no cyanosis clubbing or edema. Right wrist without significant hematoma Skin no rash Discharge Data Studies Completed and Pending Completed Studies During Hospitalization Category Date Time Status XR chest 1V portable [id number] Stat Exams 02/10/22 17:22 Completed CV. 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 No acute cardiopulmonary process. 2. Incidental/nonacute findings are listed in the report. Laboratory Results WBC 9.2 10^3/uL (4.0-10.0) 02/12/22 04:36 RBC 3.88 10^6/uL (4.1-5.3) L 02/12/22 04:36 Hgb 10.1 g/dL (11.5-15.3) L 02/12/22 04:36 Hct 33.1 % (37.0-47.0) L 02/12/22 04:36 MCV 85.3 fl (81-99) 02/12/22 04:36 MCH 26.0 pg (28.0-34.0) L 02/12/22 04:36 MCHC 30.5 g/dL (30.0-36.0) 02/12/22 04:36 RDW 16.0 % (12.1-15.1) H 02/12/22 04:36 Plt Count 358 10^3/cmm (130-400) 02/12/22 04:36 MPV 9.3 fL (7.4-10.4) 02/12/22 04:36 Neut % (Auto) 57.0 % 02/12/22 04:36 Lymph % (Auto) 33.7 % 02/12/22 04:36 [place] % (Auto) 8.3 % 02/12/22 04:36 Eos % (Auto) 0.4 % 02/12/22 04:36 Baso % (Auto) 0.4 % 02/12/22 04:36 Neut # (Auto) 5.21 10^3/uL (1.8-7.7) 02/12/22 04:36 Lymph # (Auto) 3.1 10^3/uL (0.8-4.8) 02/12/22 04:36 [place] # (Auto) 0.8 10^3/uL (0.2-0.9) 02/12/22 04:36 Eos # (Auto) 0.0 10^3/uL (0.0-0.8) 02/12/22 04:36 Baso # (Auto) 0.0 10^3/uL (0.0-0.1) 02/12/22 04:36 Nucleated RBC % (auto) 0 % 02/12/22 04:36 Nucleated RBCs # 0.0 /100WBC 02/12/22 04:36 Sodium 135 mmol/L (136-145) L 02/12/22 06:54 Potassium 4.6 mmol/L (3.5-5.1) 02/12/22 06:54 Chloride 106 mmol/L (98-107) 02/12/22 06:54 Carbon Dioxide 22 mmol/L (22-29) 02/12/22 06:54 Anion Gap 11.6 (5-19) 02/12/22 06:54 BUN 10 mg/dL (6-20) 02/12/22 06:54 Creatinine 0.7 mg/dL (0.5-0.9) 02/12/22 06:54 GFR Calculation 90.9 mL/min (90-130) 02/12/22 06:54 Glucose 95 mg/dL (65-115) 02/12/22 06:54 Estimat Average Glucose 108 02/10/22 17:39 Estimat Average Glucose Cancelled 02/10/22 17:39 Hemoglobin A1c 5.4 % (4.0-6.0) 02/10/22 17:39 Hemoglobin A1c Cancelled 02/10/22 17:39 Calculated Osmolality 279 mOsm/kg (285-295) L 02/12/22 06:54 Calcium 8.6 mg/dL (8.5-10.5) 02/12/22 06:54 Magnesium 2.0 mg/dL (1.7-2.3) 02/11/22 00:12 Total Bilirubin 0.2 mg/dL (0.15-1.2) 02/12/22 06:54 AST 21 U/L (0-32) 02/12/22 06:54 ALT 10 U/L (0-33) 02/12/22 06:54 Alkaline Phosphatase 55 U/L (35-105) 02/12/22 06:54 Troponin T Gen 5 ng/L 390 ng/L (0-10) H* 02/11/22 09:34 Troponin T Baseline 18 ng/L (0-10) H 02/10/22 17:39 Troponin T 120 Minute 43.49 ng/L (0-10) H 02/10/22 19:11 Delta Troponin T 25.49 ABS# (0-10) H* 02/10/22 19:11 Troponin T Hi Sens 6Hr 161.8 ng/L (0-10) H 02/11/22 00:12 Troponin T Hi Sens 6Hr Delta 143.8 ng/L (0-12) H* 02/11/22 00:12 NT-Pro-B Natriuret Pep 97 pg/mL (0-125) 02/10/22 19:11 Total Protein 6.4 g/dL (6.6-8.7) L 02/12/22 06:54 Albumin 3.5 g/dL (3.5-5.2) 02/12/22 06:54 Globulin 2.9 g/dL (1.3-4.6) 02/12/22 06:54 Triglycerides 118 mg/dL (0-150) 02/10/22 19:11 Cholesterol 201 mg/dL (0-200) H 02/10/22 19:11 LDL Cholesterol, Calc 128 mg/dL (50-129) 02/10/22 19:11 HDL Cholesterol 49 mg/dL (60-100) L 02/10/22 19:11 LDL/HDL Ratio 2.61 RATIO (0.00-3.22) 02/10/22 19:11 Cholesterol/HDL Ratio 4.10 mg/dL (0.0-4.40) 02/10/22 19:11 TSH 1.06 uIU/mL (0.27-4.20) 02/10/22 19:11 Urine Opiates Screen Negative ng/mL (Negative) 02/11/22 08:25 Ur Barbiturates Screen Negative ng/mL (Negative) 02/11/22 08:25 Ur Phencyclidine Scrn Negative ng/mL (Negative) 02/11/22 08:25 Ur Amphetamines Screen Positive ng/mL (Negative) H 02/11/22 08:25 U Benzodiazepines Scrn Negative ng/mL (Negative) 02/11/22 08:25 Urine Cocaine Screen Negative ng/mL (Negative) 02/11/22 08:25 U Marijuana (THC) Screen Negative ng/mL (Negative) 02/11/22 08:25 Vitals Last Vital Signs Temp 99.5 F 02/11/22 20:00 Pulse 60 02/12/22 05:07 Resp 18 02/12/22 04:00 BP 94/67 02/12/22 03:00 Pulse Ox 99 02/12/22 04:00 O2 Del Method 02/11/22 17:17 Discharge Plan Discharge Patient Disposition: Home Condition: Stable Prescriptions: New pantoprazole 40 mg Tablet,Delayed Release (Dr/Ec) 40 mg PO DAILY Qty: 30 0RF clopidogrel 75 mg Tablet 75 mg PO DAILY Qty: 30 11RF metoprolol tartrate 25 mg Tablet 12.5 mg PO BID@0900,2100 Qty: 30 0RF atorvastatin 40 mg Tablet 80 mg PO DAILY Qty: 60 0RF Continued Aspir-81 81 mg Tablet,Delayed Release (Dr/Ec) 81 mg PO DAILY ondansetron 4 mg tablet,disintegrating 4 mg PO Q4H PRN (Reason: Nausea And Vomiting) Discharge Orders: Discharge Order (Routine); Ordered 02/12/22 Ordered By: Hudson Walters Referrals: Jina Cain MD [Physician] - 4-7 days (may follow-up with nurse practitioner next week) Gross,KELL Garrido [Primary Care Provider] - 4-7 days (CBC on follow-up, may need further evaluation of mild anemia if persists) Discharge Diet: Cardiac Discharge Activity: Increase activity as tolerated Patient Instructions: Clopidogrel (By mouth), Coronary Angioplasty (DC), Opioid Safety Activity Restrictions/Additional Instructions: Take all medicine as prescribed Follow-up with cardiology and primary care provider Return for any chest discomfort Discontinue phentermine Patient's Health Concerns: Myocardial infarction Assessment: Coronary stenting Plan of Treatment: Continued medical treatment Discharge Attestations Time Spent in Discharge Care*: greater than 30 min Quality Metrics Clinical Quality Measures [ Acute Myocardial Infaction { Clinical Trial Participant: No; Contraindication to aspirin: None; Aspirin prescribed; Contraindication to statin: None; Statin p rescribed; Contraindication to PCI: None; PCI performed;}] Coding Level of Care Code Acute Chg FW DC note Diagnoses Atherosclerotic heart disease of [place] coronary artery with unstable angina pectoris I25.110 Smoking addiction F17.200 Dyslipidemia E78.5
--- NOTE | 2022-02-12 08:59 | P.PN_ITS ---
Subjective Subjective: Patient had the angiogram followed by PCI of the circumflex artery lesion yesterday. Currently she is doing okay with no recurrence of chest pain. Vital signs are stable. Her BMP from this morning revealed normal kidney function and electrolytes. Telemetry shows sinus rhythm with no significant arrhythmias. Medications: Medication Review Details: Current Medications Acetaminophen (Acetaminophen 325 Mg Tablet) 650 mg PO Q6H PRN PRN Reason: Mild/Mod Pain Or Temp >/= 101 Al Hydrox/Mg Hydrox/Simethicone (Takc-Mzu-Hwkoreqxy-Richard 30 Ml Udc) 30 ml PO Q15M PRN PRN Reason: INDIGESTION Aspirin (Aspirin 81 Mg Ec Tablet) 81 mg PO DAILY [facility] Last Admin: 02/11/22 08:11 Dose: 81 mg Atorvastatin Calcium (Atorvastatin 40 Mg Tablet) 80 mg PO DAILY [facility] Last Admin: 02/11/22 08:11 Dose: 80 mg Atropine Sulfate (Atropine 1 Mg/Ml Sdv 1 Ml) 0.5 mg IVP PRN PRN PRN Reason: Symptomatic bradycardia Clopidogrel Bisulfate (Clopidogrel 75 Mg Tablet) 75 mg PO DAILY [facility] Last Admin: 02/11/22 08:12 Dose: 75 mg Fentanyl (Fentanyl 50 Mcg/Ml Inj 2ml) 50 mcg IVP PRN PRN PRN Reason: Prior to sheath removal Magnesium Hydroxide (Magnesium Hydroxide 30 Ml Udc) 30 ml PO DAILY PRN PRN Reason: CONSTIPATION Metoprolol Tartrate (Metoprolol Tartrate 25 Mg Tablet) 12.5 mg PO BID@0900,2100 [facility] Last Admin: 02/11/22 20:16 Dose: 12.5 mg Naloxone HCl (Naloxone 0.4 Mg/Ml Sdv) 0.1 mg IVP Q2M PRN PRN Reason: RESPIRATORY RATE < 8/MIN Nitroglycerin (Nitroglycerin 0.4 Mg Sublingual Tablet) 0.4 mg SUBLINGUAL Q5M PRN PRN Reason: CHEST PAIN Ondansetron HCl (Ondansetron 2 Mg/Ml Sdv 2 Ml) 4 mg IVP Q8H PRN PRN Reason: vomiting, or N/V if npo Last Admin: 02/10/22 22:14 Dose: 4 mg Pantoprazole Sodium (Pantoprazole Dr 40 Mg Tablet) 40 mg PO DAILY [facility] Last Admin: 02/11/22 08:12 Dose: 40 mg Temazepam (Temazepam 15 Mg Capsule) 15 mg PO BEDTIME PRN PRN Reason: INSOMNIA Vitals/I&O/Wt Last Vital Signs Temp 99.5 F 02/11/22 20:00 Pulse 60 02/12/22 05:07 Resp 18 02/12/22 04:00 BP 94/67 02/12/22 03:00 Pulse Ox 99 02/12/22 04:00 O2 Del Method 02/11/22 17:17 02/11/22 02/12/22 02/12/22 22:59 06:59 14:59 Intake Total 620 / 620 828.333 / 1448.333 Balance 620 / 620 828.333 / 1448.333 Weight last 48 hrs Weight 167 lb Weight 167 lb Physical Exam Narrative: GENERAL: The patient is alert and oriented times three. Not in any acute distress. HEENT: No significant pallor, icterus or lymphadenopathy.Oral cavity: There are no mucous membrane lesions. NECK: Trachea appears to be central. No masses noted. No JVD or thyromegaly appreciated. RESPIRATORY: Chest is symmetrical. No intercostals muscle retraction or any accessory muscle activation. There is no chest wall tenderness. Breath sounds are heard bilaterally. No rales or rhonchi heard. No evidence of any consolidation. BREASTS: Deferred. HEART: The heart sounds are normal. No S3 or S4. No significant murmurs. No pericardial rub ABDOMEN: No vessel pulsations or distention. No tenderness. No organomegaly appreciated. Bowel sounds are normally heard. : Deferred. RECTAL: Deferred. LYMPHATIC: No lymphadenopathy noted in the neck. EXTREMITIES: No edema or cyanosis. No clubbing. MUSCULOSKELETAL: No acute joint deformities or swelling SKIN: There are no significant rashes or ecchymosis NEUROPSYCHIATRIC: The patient is alert and oriented x3. Appears to be in a good mood. No tremors or rigidity noted. Data 02/12/22 04:36 02/12/22 06:54 Other Labs: Laboratory Last Values WBC 9.2 10^3/uL (4.0-10.0) 02/12/22 04:36 RBC 3.88 10^6/uL (4.1-5.3) L 02/12/22 04:36 Hgb 10.1 g/dL (11.5-15.3) L 02/12/22 04:36 Hct 33.1 % (37.0-47.0) L 02/12/22 04:36 MCV 85.3 fl (81-99) 02/12/22 04:36 MCH 26.0 pg (28.0-34.0) L 02/12/22 04:36 MCHC 30.5 g/dL (30.0-36.0) 02/12/22 04:36 RDW 16.0 % (12.1-15.1) H 02/12/22 04:36 Plt Count 358 10^3/cmm (130-400) 02/12/22 04:36 MPV 9.3 fL (7.4-10.4) 02/12/22 04:36 Neut % (Auto) 57.0 % 02/12/22 04:36 Lymph % (Auto) 33.7 % 02/12/22 04:36 [place] % (Auto) 8.3 % 02/12/22 04:36 Eos % (Auto) 0.4 % 02/12/22 04:36 Baso % (Auto) 0.4 % 02/12/22 04:36 Neut # (Auto) 5.21 10^3/uL (1.8-7.7) 02/12/22 04:36 Lymph # (Auto) 3.1 10^3/uL (0.8-4.8) 02/12/22 04:36 [place] # (Auto) 0.8 10^3/uL (0.2-0.9) 02/12/22 04:36 Eos # (Auto) 0.0 10^3/uL (0.0-0.8) 02/12/22 04:36 Baso # (Auto) 0.0 10^3/uL (0.0-0.1) 02/12/22 04:36 Nucleated RBC % (auto) 0 % 02/12/22 04:36 Nucleated RBCs # 0.0 /100WBC 02/12/22 04:36 Sodium 135 mmol/L (136-145) L 02/12/22 06:54 Potassium 4.6 mmol/L (3.5-5.1) 02/12/22 06:54 Chloride 106 mmol/L (98-107) 02/12/22 06:54 Carbon Dioxide 22 mmol/L (22-29) 02/12/22 06:54 Anion Gap 11.6 (5-19) 02/12/22 06:54 BUN 10 mg/dL (6-20) 02/12/22 06:54 Creatinine 0.7 mg/dL (0.5-0.9) 02/12/22 06:54 GFR Calculation 90.9 mL/min (90-130) 02/12/22 06:54 Glucose 95 mg/dL (65-115) 02/12/22 06:54 Estimat Average Glucose 108 02/10/22 17:39 Estimat Average Glucose Cancelled 02/10/22 17:39 Hemoglobin A1c 5.4 % (4.0-6.0) 02/10/22 17:39 Hemoglobin A1c Cancelled 02/10/22 17:39 Calculated Osmolality 279 mOsm/kg (285-295) L 02/12/22 06:54 Calcium 8.6 mg/dL (8.5-10.5) 02/12/22 06:54 Magnesium 2.0 mg/dL (1.7-2.3) 02/11/22 00:12 Total Bilirubin 0.2 mg/dL (0.15-1.2) 02/12/22 06:54 AST 21 U/L (0-32) 02/12/22 06:54 ALT 10 U/L (0-33) 02/12/22 06:54 Alkaline Phosphatase 55 U/L (35-105) 02/12/22 06:54 Troponin T Gen 5 ng/L 390 ng/L (0-10) H* 02/11/22 09:34 Troponin T Baseline 18 ng/L (0-10) H 02/10/22 17:39 Troponin T 120 Minute 43.49 ng/L (0-10) H 02/10/22 19:11 Delta Troponin T 25.49 ABS# (0-10) H* 02/10/22 19:11 Troponin T Hi Sens 6Hr 161.8 ng/L (0-10) H 02/11/22 00:12 Troponin T Hi Sens 6Hr Delta 143.8 ng/L (0-12) H* 02/11/22 00:12 NT-Pro-B Natriuret Pep 97 pg/mL (0-125) 02/10/22 19:11 Total Protein 6.4 g/dL (6.6-8.7) L 02/12/22 06:54 Albumin 3.5 g/dL (3.5-5.2) 02/12/22 06:54 Globulin 2.9 g/dL (1.3-4.6) 02/12/22 06:54 Triglycerides 118 mg/dL (0-150) 02/10/22 19:11 Cholesterol 201 mg/dL (0-200) H 02/10/22 19:11 LDL Cholesterol, Calc 128 mg/dL (50-129) 02/10/22 19:11 HDL Cholesterol 49 mg/dL (60-100) L 02/10/22 19:11 LDL/HDL Ratio 2.61 RATIO (0.00-3.22) 02/10/22 19:11 Cholesterol/HDL Ratio 4.10 mg/dL (0.0-4.40) 02/10/22 19:11 TSH 1.06 uIU/mL (0.27-4.20) 02/10/22 19:11 Urine Opiates Screen Negative ng/mL (Negative) 02/11/22 08:25 Ur Barbiturates Screen Negative ng/mL (Negative) 02/11/22 08:25 Ur Phencyclidine Scrn Negative ng/mL (Negative) 02/11/22 08:25 Ur Amphetamines Screen Positive ng/mL (Negative) H 02/11/22 08:25 U Benzodiazepines Scrn Negative ng/mL (Negative) 02/11/22 08:25 Urine Cocaine Screen Negative ng/mL (Negative) 02/11/22 08:25 U Marijuana (THC) Screen Negative ng/mL (Negative) 02/11/22 08:25 A&P Assessment and plan (1) Atherosclerotic heart disease of [place] coronary artery with unstable angina pectoris: Patient s/p cardiac arrest lesion, status post PCI of the circumflex artery lesion, currently remains stable. No chest pain or cardiac arrhythmia. May co ntinue on the current medications. (2) Smoking addiction: Strongly advised to quit smoking (3) Dyslipidemia: Patient may be started on Lipitor 80 mg p.o. now and daily. Patient is tolerating medication so far well Plan Discussed with the patient in detail about the lifestyle modification. Importan ce of compliance to diet, medication and exercise were discussed. Patient seems understand this well. The angiogram findings also were discussed once again. Since the patient is remaining stable with no new symptoms, may be discharged home today. May continue on the current medication. Is make a follow-up appointment to be seen by the nurse practitioner at [facility] next week. Appointment with me in the office in 1 month. Attestations Medical Necessity Statement*: Possible discharge home today Coding Level of Care Code Acute Weatherization And Housing Inspector for Lane Fwd History Expanded Problem Focused Exam Expanded Problem Focused Medical Decision Making Moderate Complexity Diagnoses Atherosclerotic heart disease of [place] coronary artery with unstable angina pectoris I25.110 Smoking addiction F17.200 Dyslipidemia E78.5
[2022-02-12] MEDS: pantoprazole DR 40 mg Tablet PO (09:30)
[2022-02-12] MEDS: atorvastatin 40 mg Tablet 80 MG PO (09:30)
[2022-02-12] MEDS: aspirin 81 mg EC Tablet PO (09:30)
[2022-02-12] MEDS: clopidogrel 75 mg Tablet PO (09:32)
[2022-02-12] MEDS: metoprolol tartrate 25 mg Tablet 12.5 MG PO (09:32)
--- NOTE | 2022-02-12 11:49 | PC.NURSE ---
dischRGE INSTRUCTIONS GIVEN AND EXPLAINED.PT VERB UNDERSTANDING OF INSTRUCTIONS.PT DISCHARGED AMBULATORY TO EXIT.SPOUSE TO DRIVE PT HOME
== END 2022-02-12 11:50 | disposition home or self-care (01) | DRG 247 ==
LOC: ER 02-11 07:12 → CSU 02-11 14:25
PROVIDERS: Family Medicine; Internal Medicine; Internal Medicine Cardiovascular Disease; Admitting Provider Internal Medicine; Emergency Provider Emergency Medicine; PCP Nurse Practitioner Family; Visit Provider Internal Medicine
PROC: B2111ZZ Fluoroscopy of Multiple Coronary Arteries using Low Osmolar Contrast (ICD-10-PCS; principal; 2022-02-11 16:30)
PROC: 027034Z Dilation of Coronary Artery, One Artery with Drug-eluting Intraluminal Device, Percutaneous Approach (ICD-10-PCS; 2022-02-11 16:30)
DX: I21.4 Non-ST elevation (NSTEMI) myocardial infarction (principal); I25.110 Atherosclerotic heart disease of native coronary artery with unstable angina pectoris; F17.200 Nicotine dependence, unspecified, uncomplicated; E78.5 Hyperlipidemia, unspecified; J44.9 Chronic obstructive pulmonary disease, unspecified; R11.0 Nausea; E87.6 Hypokalemia; Z79.899 Other long term (current) drug therapy
CPT/HCPCS: 36415; 71045; 80048; 80053; 80061; 80306; 83036; 83735; 83880; 84443; 84484; 85025; 85347; 93005; 93306; 93458; 96372; 99152; 99153; 99285; C1769; C1874; C1887; C1894; C9600; J1644; J1650; J2250; J2405; J3010; J3490; J7030; Q9967

== ENCOUNTER 2022-04-19 12:12 | Outpatient (CLI) | payer SELFPAY ==
[2022-04-19 12:43] LABS: Basophils % 0.5 %; Eosinophils # 0.1 10^3/uL (0.0-0.8); Eosinophils % 0.7 %; Hematocrit 32.2 % (37.0-47.0); Hemoglobin 9.8 g/dL (11.5-15.3); Lymphocytes # 3.6 10^3/uL (0.8-4.8); Lymphocytes % 41.6 %; Mean Corpuscular HGB Conc 30.4 g/dL (30.0-36.0); Mean Corpuscular Hemoglobin 25.3 pg (28.0-34.0); Mean Platelet Volume 8.9 fL (7.4-10.4); Monocytes # 0.6 10^3/uL (0.2-0.9); Monocytes % 7.1 %; Neutrophils # 4.38 10^3/uL (1.8-7.7); Neutrophils % 49.9 %; Nucleated Red Blood Cells % 0 %; Platelet Count 416 10^3/cmm (130-400); Red Blood Count 3.88 10^6/uL (4.1-5.3); Red Cell Distribution Width 14.9 % (12.1-15.1); White Blood Count 8.8 10^3/uL (4.0-10.0)
[2022-04-19 13:01] LABS: Alanine Aminotransferase 14 U/L (0-33); Albumin Level 4.2 g/dL (3.5-5.2); Alkaline Phosphatase 93 U/L (35-105); Anion Gap 13.4 (5-19); Aspartate Amino Transferase 19 U/L (0-32); Blood Urea Nitrogen 6 mg/dL (6-20); Calcium 9.2 mg/dL (8.5-10.5); Carbon Dioxide 29 mmol/L (22-29); Chloride 103 mmol/L (98-107); Globulin 2.9 g/dL (1.3-4.6); Glomerular Filtration Rate 108.6 mL/min (90-130); Glucose 105 mg/dL (65-115); Osmolality Calculated 290 mOsm/kg (285-295); Potassium 4.4 mmol/L (3.5-5.1); Sodium 141 mmol/L (136-145); Total Bilirubin 0.2 mg/dL (0.15-1.2); Total Protein 7.1 g/dL (6.6-8.7)
== END 2022-04-19 12:13 | disposition home or self-care (01) ==
PROVIDERS: PCP Nurse Practitioner Family; Visit Provider Nurse Practitioner Family
DX: I10 Essential (primary) hypertension (principal); D50.0 Iron deficiency anemia secondary to blood loss (chronic)
CPT/HCPCS: 36415; 80053; 85025